=== PATIENT | female | born 1990 | race Caucasian/White ===

== ENCOUNTER 2021-09-30 20:04 | Emergency (ER) | payer OTHER ==
[~2021-09-30] VITALS: Ht 149.9 cm; Wt 45.4 kg
[2021-09-30] MEDS ORDERED: KETOROLAC TROMETHAMINE 30 MG/ML VIAL IM STA (20:22)
[2021-09-30 20:37] LABS: CLARITY,URINE SL CLOUDY (CLEAR); COLOR,URINE YELLOW (YELLOW); KETONES,URINE NEGATIVE (NEGATIVE); LEUKOCYTE ESTERASE ,URINE NEGATIVE (NEGATIVE); NITRITE,URINE POSITIVE (NEGATIVE); PROTEIN,URINE DIPSTICK NEGATIVE (NEGATIVE); URINE UROBILINOGEN 0.2 mg/dL (0.2 - 1)
[2021-09-30 20:43] LABS: BACTERIA,URINE MODERATE /HPF; EPITHELIAL CELLS,URINE MODERATE /LPF
[2021-09-30] MEDS ORDERED: CEFTRIAXONE 1 GM VIAL IM ONE (22:00)
[2021-09-30] MEDS ORDERED: ULTRAM50 MG PO (22:02)
[2021-09-30] MEDS ORDERED: CEFDINIR300 MG PO (22:02)
[2021-09-30] MEDS ORDERED: FLOMAX0.4 MG PO (22:05)
[2021-09-30] MEDS ORDERED: LIDOCAINE HCL 1% 2 ML AMP INJ ONE (22:15)
[2021-09-30] MEDS ORDERED: LIDOCAINE HCL 1% 2 ML AMP ONE (22:20)
== END 2021-09-30 22:34 | disposition home or self-care (01) ==
LOC: ER 20:17
DX: M54.50 Low back pain, unspecified (principal); N39.0 Urinary tract infection, site not specified; N20.0 Calculus of kidney; F41.9 Anxiety disorder, unspecified
CPT/HCPCS: 74176; 81001; 81025; 99283; J0696; J1885; J2001

== ENCOUNTER 2021-10-14 15:54 | Emergency (ER) | payer OTHER ==
[~2021-10-14] VITALS: Ht 149.9 cm; Wt 45.4 kg
[~2021-10-14 15:54] MED LIST: CEFDINIR300 MG PO; FLOMAX0.4 MG PO; ULTRAM50 MG PO
[2021-10-14] MEDS ORDERED: IBUPROFEN 600 MG TAB PO STA (16:24)
[2021-10-14] MEDS ORDERED: CYCLOBENZAPRINE HCL 10 MG TAB PO ONE (16:30)
[2021-10-14 17:30] LABS: CLARITY,URINE CLEAR (CLEAR); COLOR,URINE YELLOW (YELLOW); LEUKOCYTE ESTERASE ,URINE NEGATIVE (NEGATIVE); NITRITE,URINE NEGATIVE (NEGATIVE); PROTEIN,URINE DIPSTICK NEGATIVE (NEGATIVE)
[2021-10-14 17:31] LABS: KETONES,URINE NEGATIVE (NEGATIVE); URINE UROBILINOGEN 0.2 mg/dL (0.2 - 1)
[2021-10-14 17:45] LABS: BACTERIA,URINE MANY /HPF; EPITHELIAL CELLS,URINE MANY /LPF
[2021-10-14] MEDS ORDERED: IBUPROFEN600 MG PO (18:03)
[2021-10-14] MEDS ORDERED: METHOCARBAMOL750 MG PO (18:03)
== END 2021-10-14 18:24 | disposition home or self-care (01) ==
LOC: ER 15:59
DX: M54.50 Low back pain, unspecified (principal); F41.9 Anxiety disorder, unspecified
CPT/HCPCS: 81001; 81025; 99283

== ENCOUNTER 2021-11-12 16:39 | Emergency (ER) | payer OTHER ==
[~2021-11-12] VITALS: Ht 149.9 cm; Wt 45.4 kg
[~2021-11-12 16:39] MED LIST changes: +IBUPROFEN600 MG PO; +METHOCARBAMOL750 MG PO
[2021-11-12] MEDS ORDERED: PREDNISONE 10 MG TAB PO ONE (17:00)
[2021-11-12 17:46] LABS: CLARITY,URINE CLEAR (CLEAR); COLOR,URINE COLORLESS (YELLOW)
[2021-11-12 17:47] LABS: KETONES,URINE NEGATIVE (NEGATIVE); LEUKOCYTE ESTERASE ,URINE TRACE (NEGATIVE); NITRITE,URINE NEGATIVE (NEGATIVE); PROTEIN,URINE DIPSTICK NEGATIVE (NEGATIVE); URINE UROBILINOGEN 0.2 mg/dL (0.2 - 1)
[2021-11-12 17:58] LABS: BACTERIA,URINE MODERATE /HPF; EPITHELIAL CELLS,URINE MODERATE /LPF; WBC,URINE (MAN) 0-5 /HPF (0-5)
[2021-11-12 18:01] LABS: ANION GAP 9.9 mmol/L (8-16); BASOPHILS % 0.4 % (0.0-1.0); CALCIUM 8.8 mg/dL (8.4-10.2); CREATININE, SERUM 0.58 mg/dL (0.57-1.11); EOSINOPHILS # (AUTO) 0.1 (0.0-0.4); EOSINOPHILS % 0.7 % (0.0-6.0); HEMATOCRIT 35.4 % (34.2-44.1); LYMPHOCYTES # (AUTO) 2.4 (1.0-3.2); LYMPHOCYTES % 28.2 % (18.0-39.1); MEAN CORPUSCULAR HEMOGLOBIN 32.6 pg (28-32); MEAN CORPUSCULAR HGB CONC 33.9 g/dL (31-35); MEAN CORPUSCULAR VOLUME 96.2 fL (81-99); MONOCYTES # (AUTO) 0.8 (0.2-0.8); MONOCYTES % 9.8 % (4.4-11.3); NEUTROPHILS # (AUTO) 5.1 (2.1-6.9); NEUTROPHILS % 60.1 % (38.7-80.0); PLATELET COUNT 201 x10e3/uL (140-360); POTASSIUM 3.9 mmol/L (3.5-5.1); RED BLOOD COUNT 3.68 x10e6/uL (3.6-5.1); RED CELL DISTRIBUTION WIDTH 12.7 % (11.7-14.4)
[2021-11-12] MEDS ORDERED: ACETAMINOPHEN 325 MG TAB PO ONE (19:45)
[2021-11-12] MEDS ORDERED: ACETAMINOPHEN 325 MG TAB ONE (19:48)
[2021-11-12 21:33] VITALS: BP 125/100
== END 2021-11-12 21:30 | disposition left against medical advice (07) ==
LOC: ER 16:50
DX: O00.90 Unspecified ectopic pregnancy without intrauterine pregnancy (principal); R10.2 Pelvic and perineal pain; F41.9 Anxiety disorder, unspecified; Z20.822 Contact with and (suspected) exposure to COVID-19
CPT/HCPCS: 36415; 76801; 76817; 80048; 81001; 84702; 85025; 99284; U0002

== ENCOUNTER 2022-01-02 17:52 | Emergency (ER) | payer OTHER ==
[~2022-01-02] VITALS: Ht 149.9 cm; Wt 45.4 kg
[2022-01-02] MEDS ORDERED: IBUPROFEN 600 MG TAB PO STA (18:08)
[2022-01-02] MEDS ORDERED: IBUPROFEN 600 MG TAB ONE (18:23)
== END 2022-01-02 20:13 | disposition home or self-care (01) ==
LOC: ER 17:56
DX: M25.561 Pain in right knee (principal); S80.01XA Contusion of right knee, initial encounter; W18.39XA Other fall on same level, initial encounter; Y92.89 Other specified places as the place of occurrence of the external cause; F41.9 Anxiety disorder, unspecified; F17.210 Nicotine dependence, cigarettes, uncomplicated
CPT/HCPCS: 99284

== ENCOUNTER 2023-07-25 20:03 | Emergency (ER) | payer OTHER ==
[~2023-07-25] VITALS: Ht 149.9 cm; Wt 45.4 kg
[~2023-07-25 20:03] MED LIST changes: +PYRIDOXINE HCL 50 MG TAB ONE
[2023-07-25] MEDS ORDERED: ONDANSETRON HCL INJ 2MG/ML 2ML 2 MG/ML VIAL IV PRN (20:30)
[2023-07-25 20:42] LABS: BASOPHILS % 0.3 % (0.0-1.0); EOSINOPHILS # (AUTO) 0.1 (0.0-0.4); HEMATOCRIT 33.9 % (34.2-44.1); HEMOGLOBIN 12.1 g/dL (12.0-16.0); LYMPHOCYTES # (AUTO) 3.5 (1.0-3.2); LYMPHOCYTES % 27.9 % (18.0-39.1); MEAN CORPUSCULAR HEMOGLOBIN 33.2 pg (28-32); MEAN CORPUSCULAR HGB CONC 35.7 g/dL (31-35); MEAN CORPUSCULAR VOLUME 93.1 fL (81-99); MONOCYTES % 8.3 % (4.4-11.3); NEUTROPHILS # (AUTO) 7.7 (2.1-6.9); NEUTROPHILS % 62.2 % (38.7-80.0); PLATELET COUNT 253 x10e3/uL (140-360); RED BLOOD COUNT 3.64 x10e6/uL (3.6-5.1); RED CELL DISTRIBUTION WIDTH 12.5 % (11.7-14.4); WHITE BLOOD COUNT 12.46 x10e3/uL (4.8-10.8)
[2023-07-25] MEDS ORDERED: DEXTROSE 5%/0.45% SOD CHL 1,000 ML IV ONE (20:45)
[2023-07-25] MEDS ORDERED: ONDANSETRON HCL INJ 2MG/ML 2ML 2 MG/ML VIAL ONE (20:45)
[2023-07-25] MEDS: ONDANSETRON HCL INJ 2MG/ML 2ML 2 MG/ML VIAL IV STA (20:46)
[2023-07-25] MEDS: DEXTROSE 5%/0.45% SOD CHL 1,000 ML IV ONE (20:49)
[2023-07-25] MEDS: PYRIDOXINE HCL 50 MG TAB PO STA (20:51)
[2023-07-25 20:53] LABS: ALBUMIN 3.6 g/dL (3.5-5.0); ALBUMIN/GLOBULIN RATIO 0.9 (0.8-2.0); ANION GAP 15.3 mmol/L (8-16); BILIRUBIN,TOTAL 0.2 mg/dL (0.2-1.2); CALCIUM 8.8 mg/dL (8.4-10.2); CREATININE, SERUM 0.58 mg/dL (0.57-1.11); TOTAL PROTEIN 7.4 g/dL (6.5-8.1)
[2023-07-25] MEDS ORDERED: PYRIDOXINE HCL 50 MG TAB ONE (20:53)
[2023-07-25 20:58] LABS: POTASSIUM 5.3 mmol/L (3.5-5.1)
[2023-07-25 20:58] LABS: CLARITY,URINE CLEAR (CLEAR); COLOR,URINE YELLOW (YELLOW); GLUCOSE, URINE NEGATIVE (NEGATIVE); KETONES,URINE NEGATIVE (NEGATIVE); LEUKOCYTE ESTERASE ,URINE NEGATIVE (NEGATIVE); NITRITE,URINE NEGATIVE (NEGATIVE); PH,URINE 7 (5 - 7); PROTEIN,URINE DIPSTICK NEGATIVE (NEGATIVE)
[2023-07-25 20:59] LABS: BILIRUBIN,URINE NEGATIVE (NEGATIVE); URINE UROBILINOGEN 0.2 mg/dL (0.2 - 1)
[2023-07-25 21:11] LABS: BACTERIA,URINE MODERATE /HPF; EPITHELIAL CELLS,URINE FEW /LPF; RBC,URINE 0-5 /HPF (0-5); WBC,URINE (MAN) 0-5 /HPF (0-5)
[2023-07-25] MEDS ORDERED: ONDANSETRON ODT4 MG PO (21:50)
[2023-07-25] MEDS ORDERED: CEPHALEXIN500 MG PO (21:50)
[2023-07-25 22:11] VITALS: O2SAT 100
[2023-07-26] MEDS ORDERED: ONDANSETRON HCL INJ 2MG/ML 2ML 2 MG/ML VIAL ONE (19:40)
[2023-07-26] MEDS ORDERED: SOD CHL IV ONE (19:40)
[2023-07-26] MEDS ORDERED: DEXTROSE IV ONE (19:40)
== END 2023-07-25 22:08 | disposition home or self-care (01) ==
LOC: ER 20:07
DX: O26.891 Other specified pregnancy related conditions, first trimester (principal); O23.41 Unspecified infection of urinary tract in pregnancy, first trimester; N39.0 Urinary tract infection, site not specified; O21.0 Mild hyperemesis gravidarum; R51.9 Headache, unspecified; F41.9 Anxiety disorder, unspecified
CPT/HCPCS: 36415; 80053; 81001; 84702; 85025; 99283; J2405